=== PATIENT | male | born 1930 | race Caucasian/White ===

== ENCOUNTER 2017-06-10 18:06 | Inpatient (IN) | payer MEDICARE, OTHER ==
[~2017-06-10] VITALS: Ht 162.6 cm; Wt 71.4 kg
--- NOTE | 2017-06-11 00:30 | NUR ---
NEW ADMIT TO DOCTOR RIVERA FROM [facility] IN [place]. PATIENT ARRIVED TO UNIT VIA AMBULANCE ON A STRETCHER. PATIENT BEING ADMITTED FOR ALTERED MENTAL STATUS. HE IS DELUSIONAL AT TIMES. TAKING CLOTHES OFF. INAPPROPRIATE SEXUAL STATEMENTS. AGGITATION. PATIENT HAS A HISTORY OF DEMENTIA. JUST FINISHED ANTIBIOTICS RELATED TO PNEUMONIA. BED REST. REGULAR DIET PUREE WITH NECTAR THICK LIQUIDS. UPON ARRIVAL TO UNIT, PATIENT WAS CALM AND COOPERATIVE BUT CONFUSED. TELEPHONE CONSENT RECEIVED FROM PATIENTS (ADY). PATIENTS VERIFIED FULL CODE STATUS. PATIENTS FAMILY STATES THEY WOULD [facility]AC[facility]. PATIENT REMAINS CALM AND COOPERATIVE. RESTING IN BED WITH EYES CLOSED AT THIS TIME. PITO ALARM ON. CONTINUE TO MONITOR.
[2017-06-11 06:18] VITALS: BP 139/65
[2017-06-11 06:34] LABS: BASOPHILS 0.1 % (0-2); EOSINOPHILS 0.3 % (0-7); HEMATOCRIT 27.2 % (42.0-54.0); HEMOGLOBIN 9.1 g/dL (13.5-17.5); IMMATURE GRANULOCYTES 0.3 % (0-5); LYMPHOCYTES 15.6 % (15-50); MCH 30.7 pg (26.0-34.0); MCHC 33.5 g/dL (31.0-37.0); MCV 91.9 fL (80.0-100.0); MEAN PLATELET VOLUME 10.5 fL (7.4-10.4); MONOCYTES 10.5 % (2-11); NEUTROPHILS 73.2 % (40-80); PLATELET COUNT 266 10x3/uL (130-400); RBC 2.96 10x6/uL (4.20-6.10); RDW 16.3 % (11.5-14.5); WBC 7.3 10x3/uL (4.8-10.8)
[2017-06-11] MEDS ORDERED: FUROSEMIDE20 MG PO (07:05)
[2017-06-11] MEDS ORDERED: KLOR-CON 1010 MEQ PO (07:06)
[2017-06-11] MEDS ORDERED: PROVENTIL/2.5 MG/3 M INH (07:08)
[2017-06-11] MEDS ORDERED: CLEOCIN HCL300 MG PO (07:08)
[2017-06-11 07:12] LABS: ALBUMIN 2.1 g/dL (3.4-5.0); ALKALINE PHOSPHATASE 79 U/L (46-116); ALT (SGPT) 10 U/L (10-68); BILIRUBIN - TOTAL 0.59 mg/dL (0.2-1.3); CALC OSMOLALITY 273 mosm/kg (275-300); CALCIUM 7.9 mg/dL (8.5-10.1); CARBON DIOXIDE 27.3 mmol/L (21.0-32.0); CHLORIDE - SERUM 103 mmol/L (98-107); CHOL - HDL RATIO 3.6 ratio (2.3-4.9); CHOLESTEROL, TOTAL 128 mg/dL (0-200); CREATININE - SERUM 0.7 mg/dL (0.6-1.3); GLUCOSE 92 mg/dL (74-106); HDL CHOLESTEROL 36 mg/dL (32-96); LDL CHOLESTEROL 76 mg/dL (0-100); LDL-HDL RATIO 2.1 ratio (1.5-3.5); POTASSIUM - SERUM 3.8 mmol/L (3.5-5.1); PROTEIN - SERUM 5.4 g/dL (6.4-8.2); SODIUM 138 mmol/L (136-145); THYROID STIMULATING HORMONE 1.13 uIU/mL (0.36-3.74); TRIGLYCERIDE 84 mg/dL (30-200); UREA NITROGEN 6 mg/dL (7-18); eGFR NON AFRICAN AMERICAN > 90 mL/min (90-120)
[2017-06-11 08:59] VITALS: BP 117/67
--- NOTE | 2017-06-11 12:45 | NUR ---
PT FINISHED WITH LUNCH SITTING AT TABLE VERY ANXIOUS SHAKING TABLE TRYING TO GET UP PT REDIRECTED SEVERAL TIMES WITHOUT SUCESS PT MEDICATED WITH ATIVAN PER DR ORDER WILL MONITER
[2017-06-11 19:36] VITALS: BP 146/68
--- NOTE | 2017-06-12 02:06 | NUR ---
RECEIVED IN HALLWAY. SITTING IN RECLINER OUTSIDE OF NURSES STATION. VERY CONFUSED. CALM AND COOPERATIVE WITH CARE AND ASSESSMENT. NO SIGNS OF AGGITATION. REDIRECT AND REORIENT NEEDED. ENCOURAGE TO EXPRESS NEEDS. RESTING IN BED WITH EYES CLOSED AT THIS TIME. CONTINUE PLAN OF CARE.
[2017-06-12 07:31] LABS: RAPID PLASMA REAGIN Non Reactive (Non Reactive)
--- NOTE | 2017-06-12 07:50 | NUR ---
PATIENT IS COUGHING AND DID GET HIM UP, HE DOES HAVE SEVERE REDNESS AND EXCORIATION TO HIS GROIN, BUTTOCKS, AND SCROTUM, WILL GET ORDER FOR MEDS TO ALLEVIATE THE RASH. LOOKS LIKE YEAST.
[2017-06-12 08:21] LABS: FOLATE (FOLIC ACID) - SERUM 4.2 ng/mL (>3.0)
--- NOTE | 2017-06-12 08:25 | NUR ---
B) PATIENT IS AWAKE AND ALERT TODAY. HE IS [place], HE HAS EDEMA TO BILATERAL ARMS AND LEGS, HIS LUNGS HAVE WHEEZES ON EXPORATION. HE IS COUGHING, BUT IT IS NONPRODUCTIVE. I) PROVIDE PRESCRIBED MEDS. R) PATIENT IS COMPLIANT WITH MEDS. P) CONTINUE POC.
[2017-06-12 09:52] VITALS: BP 93/54
--- NOTE | 2017-06-12 10:15 | PSY ---
PATIENT NAME:KAREN SINGH MEDICAL RECORD: [id number] : [birth year] LOCATION:L[facility]5 ADMISSION DATE: 06/11/17 ACCOUNT: [id number] PSYCHIATRIC EVALUATION DATE OF EVALUATION: 06/11/17 IDENTIFYING DATA: This is the first Residential admission for this 86-year-old white male. HISTORY OF PRESENT ILLNESS: This patient was accepted on transfer from [facility] in [place]. He has a reported past history of dementia. The patient has just completed treatment for pneumonia. He has shown marked worsening in his mental status with extreme confusion. He has also been exhibiting inappropriate sexual behavior, disrobing and making inappropriate comments to others. He is reported to be exhibiting delusional ideation as well. Because of severe deterioration in mental status and combativeness, the patient is admitted. The patient does have chronic pedal edema as well. PAST MEDICAL HISTORY: Significant for recent pneumonia and possible hypertension. MEDICATIONS: Medications at the time of admission included Lasix, potassium, albuterol inhaler, and clindamycin. ALLERGIES: None listed. FAMILY HISTORY: Noncontributory. SOCIAL HISTORY: The patient is reportedly originally from [place]. It is not known how long he has lived in [facility], but he is . No details are available currently regarding drinking or smoking status. No known legal difficulties. MENTAL STATUS: On exam, this is an elderly male, who is quite agitated and restless. He has been refusing food and medication and is somewhat difficult to redirect. Mood is at times anxious, at other times irritable. Affect is very brittle. Speech tends to be nonfocused. The patient can occasionally respond appropriately to examiner's questions, but then begins talking in a tangential way about other matters. Content of thought is reportedly positive for delusional ideation. The patient evidently has been exhibiting some paranoid ideation. On sensorium testing, the patient is oriented only to person. He does not recognize that he has recently been in [place]. He does not know where he is now nor does he know the date or the time. Remote recall appears to be significantly impaired. He had great difficulty describing where he was born and raised. Intermediate and short-term recall are all very severely impaired. Concentration is quite poor. Insight is absent. Judgment is very poor. 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 AXIS II: No diagnosis. AXIS III: Recent history of pneumonia, possible restrictive lung disease, pedal edema. AXIS IV: Severe. AXIS V: 36. PLAN: 1. The patient is admitted for further observation from a psychiatric standpoint and further medical workup. 2. Medication adjustment as indicated. 3. Diet and activities as tolerated. 4. Daily supportive therapy. 5. We will work with family regarding placement. TRANSINT:[id number] Voice Confirmation ID: [id number] DOCUMENT ID: [id number] RAMÓN RIVERA III, MD at 1015 CC: [id number] DICTATION DATE: 06/11/17 1104 COMPUTER EDUCATION TEACHER: 06/11/17 1131 ADM IN [place] [id number] [place] [address]
[2017-06-12 19:44] VITALS: BP 119/70
--- NOTE | 2017-06-13 02:05 | NUR ---
B) patient is alert and oriented to self, no aggression or behaviors noted, I) Administered scheduled medications, monitored for falls and safety, R) Medication compliant, resting quietly in bed, P) Continue plan of care.
--- NOTE | 2017-06-13 07:30 | NUR ---
B) PATIENT IS IN BED AND DID HAVE LOOSE BM, STAFF CLEANED HIM UP. PATIENT HAS SEVERE YEAST TO BUTTOCKS, SCROTUM, AND GROINAL AREA, AFTER CLEANING HIM UP IT IS NOTED THAT HE HAS THREE AREAS ON HIS BUTTOCKS THAT ARE ABRASIONS AND WEEPING. DID APPLY MEPILEX. EACH SORE AREA IS ABOUT 2X2CM, THE REMAINDER OF HIS BUTTOCKS, SCROTUM AND GROIN DID APPLY CALMOSEPTINE AND NYSTATIN. LEAVING PATIENT IN THE BED SO HE CAN BE ROLLED FROM SIDE TO SIDE AND KEPT OFF OF HIS BUTTOCKS TODAY. I) PROVIDE PRESCRIBED MEDS. R) PATIENT IS SLEEPY THIS AM, NO AGGRESSION THIS AM. P) CONTINUE POC.
[2017-06-13 09:52] VITALS: BP 130/70
--- NOTE | 2017-06-13 15:44 | NUR ---
PATIENT IS WAKING UP, HE NEEDS TO BE IN THE DAY ROOM WHERE HE CAN BE MONITORED 1:1 BECAUSE HE IS TRYING TO GET OUT OF THE BED AND WHEN STAFF TRY TO EXPLAIN TO HIM THAT HE IS IN THE HOSPITAL AND THAT HE IS SICK, PATIENT IS NOW CURSING SAYING "I AM NOT "F"ING SICK" PATIENT IS BEING TURNED Q 2 HOURS, WATER PROVIDED AND BED IS BEING CHANGED IT NEEDS IT.
[2017-06-13 19:37] VITALS: BP 120/64
--- NOTE | 2017-06-13 22:51 | NUR ---
B) patient alert and oriented to self, very confused and disoriented, dificult to redirect at times, I) Administered scheduled medications crushed, redirected as needed, R) Medication compliant, resting quietly now, P) Continue plan of care.
[2017-06-14 06:29] VITALS: Ht 162.6 cm; Wt 71.4 kg
[2017-06-14 09:44] VITALS: BP 148/78
--- NOTE | 2017-06-14 12:39 | NUR ---
B) PATIENT IS MORE AWAKE TODAY, HE IS CONFUSED, STILL COUGHING AND STILL HAS WHEEZES. PATIENT DID WALK WITH P.T. TODAY. HE IS CALM, BUT HE DOES CURSE AT TIMES. I) PROVIDE PRESCRIBED MEDS. R) PATIENT IS COMPLIANT WITH MEDS. P) CONTINUE POC.
[2017-06-14 16:21] LABS: APPEARANCE SLT CLOUDY (CLEAR); BILIRUBIN NEGATIVE (NEGATIVE); COLOR DK YELLOW (YELLOW); GLUCOSE NEGATIVE (NEGATIVE); KETONE MODERATE mg/dL (NEGATIVE); NITRITE NEGATIVE (NEGATIVE); PROTEIN TRACE mg/dL (NEGATIVE); UROBILINOGEN NORMAL (NORMAL)
[2017-06-14 16:23] LABS: BACTERIA FEW /hpf (NONE SEEN); EPITHELIAL CELLS 0-5 /hpf (0-5)
[2017-06-14 16:24] LABS: MUCUS <1+ /lpf (NONE SEEN)
[2017-06-14 19:30] VITALS: BP 138/89
--- NOTE | 2017-06-15 04:06 | NUR ---
B) patient is alert and oriented to self only, restless at times, cooperative with staff, I) Administered scheduled medication, monitored for safety, R) Medication compliant P) Continue plan of care.
--- NOTE | 2017-06-15 06:01 | PN ---
PATIENT:KAREN SINGH MEDICAL RECORD: [id number] LOCATION:CHARAN Duval ADMISSION DATE: 06/11/17 PROGRESS NOTE DATE OF SERVICE: 06/14/2017 SUBJECTIVE: No new complaint noted. OBJECTIVE: The patient is not combative, but has outbursts of yelling with profanity. On exam, mood is anxious. Affect is restless. Speech is as noted above. Content of thought focuses only on somatic concerns. Sensorium shows no change. ASSESSMENT: No change in diagnosis. PLAN: 1. Continue current workup. 2. Continue current medications and supportive therapy. TRANSINT:[id number] Voice Confirmation ID: [id number] DOCUMENT ID: [id number] RAMÓN RIVERA III, MD at 0601 CC: [id number] DICTATION DATE: 06/14/17 1116 LOAN DOCUMENTS CLOSER: 06/14/17 1316 ADM IN [place] [id number] [place] [id number]
--- NOTE | 2017-06-15 06:01 | PN ---
PATIENT:KAREN SINGH MEDICAL RECORD: [id number] LOCATION:CHARAN Duval ADMISSION DATE: 06/11/17 PROGRESS NOTE DATE OF SERVICE: 06/12/2017 SUBJECTIVE: No coherent complaint. OBJECTIVE: The patient remains extremely confused. He did take his medications willingly today. He has been eating reasonably well. PHYSICAL EXAMINATION: On exam, mood is slightly anxious. Affect is shallow. Speech is rambling and nonsensical. Content of thought is negative for overt psychosis. Sensorium shows no change. ASSESSMENT: No change in diagnosis. PLAN: 1. Add Aricept 5 mg at bedtime. 2. Continue other current medications. 3. Continue supportive therapy. TRANSINT:[id number] Voice Confirmation ID: [id number] DOCUMENT ID: [id number] RAMÓN RIVERA III, MD at 0601 CC: [id number] DICTATION DATE: 06/12/17 1100 AUTOMATIC CORN GRINDER OPERATOR: 06/12/17 1330 ADM IN [place] [id number] [place] [address]
--- NOTE | 2017-06-15 06:01 | PN ---
PATIENT:KAREN SINGH MEDICAL RECORD: [id number] LOCATION:CHARAN Duval ADMISSION DATE: 06/11/17 PROGRESS NOTE DATE OF SERVICE: 06/13/2017 SUBJECTIVE: No new complaint. OBJECTIVE: The patient continues to feel ill. He has residual pneumonia and has had some episodic coughing and dyspnea. He also has some skin breakdown on the buttocks, and for this reason nursing staff has allowed him to stay in bed today. On exam, mood is rather anxious. Affect is shallow and brittle. Speech is tangential. Content of thought just focuses primarily on somatic problems. Sensorium shows no change. ASSESSMENT: No change in diagnosis. PLAN: 1. Continue all current medications. 2. Continue supportive therapy. TRANSINT:[id number] Voice Confirmation ID: [id number] DOCUMENT ID: [id number] RMAÓN RIVERA III, MD at 0601 CC: [id number] DICTATION DATE: 06/13/17 1109 TERRAZZO HELPER: 06/13/17 1200 ADM IN [place] [address] [place] [address]
[2017-06-15 07:00] VITALS: BP 124/54
--- NOTE | 2017-06-15 11:47 | NUR ---
HALDOL 2MG IM TO RT HIP DUE TO CUSSING LOUDLY AT PEER AND PUSHING TABLE HARD.UNABLE TO REDIRECT.CONFUSED AND DISORIENTED.COMPLIANT WITH MEDS,CRUSHED AND GIVEN IN APPLESAUCE.HAS RED RAISED RASH ON BACK,ABD AND LEGS.SCRATCHING OBSERVED.WILL NOTIFY OF RASH.WILL CONTINUE WITH PLAN OF CARE,MONITOR FOR CHANGES AND SAFETY.
--- NOTE | 2017-06-15 13:31 | NUR ---
TELEPHONE ORDERS RECEIVED FROM TO NARA ORTIZ ,GIVE BENADRYL 25MG PO X1 AND APPLY NYSTATIN CREAM TO RASH ON BODY AND LEGS BID.
[2017-06-15 19:30] VITALS: BP 126/87
--- NOTE | 2017-06-16 02:22 | NUR ---
RECEIVED IN HALLWAY OUTSIDE OF NURSES STATION. RESTING IN RECLINER WITH EYES OPEN. CALM AND COOPERATIVE WITH CARE AND ASSESSMENT. NO SIGNS OF AGGRESSION. ENCOURAGE TO EXPRESS NEEDS. REDIRECT AND REORIENT NEEDED. RESTING IN BED WITH EYES CLOSED AT THIS TIME. CONTINUE PLAN OF CARE.
[2017-06-16 07:00] VITALS: BP 115/60
--- NOTE | 2017-06-16 08:15 | NUR ---
INCONTINENT OF LARGE THICK BROWN STOOL. ORIENTED TO SELF ONLY. CALM AND COOPERATIVE WITH CARE AND ASSESSMENT. ADMINISTERED MEDICATIONS CRUSHED IN APPLESAUCE. REDIRECT AND REORIENT NEEDED. MONITOR FOR SAFETY AND CHANGES. CONTINUE PLAN OF CARE.
[2017-06-16 19:30] VITALS: BP 122/82
--- NOTE | 2017-06-16 21:11 | NUR ---
RECEIVED IN HALLWAY. SITTING IN A RECLINING CHAIR OUTSIDE OF NURSES STATION. ATTEMPTS TO STAND WITHOUT ASSIST AT TIMES. CALM AND COOPERATIVE WITH CARE AND ASSESSMENTS. NO SIGNS OF AGGRESSION. REDIRECT AND REORIENT NEEDED. RESTING IN BED EYES CLOSED AT THIS TIME. CONTINUE PLAN OF CARE
[2017-06-17 07:00] VITALS: BP 96/61
--- NOTE | 2017-06-17 10:00 | NUR ---
CONFUSED AND DISORIENTED, BUT CALM AND COOPERATIVE WITH CARE AND ASSESSMENT. ASSESSMENT COMPLETED PER FLOW. COMPLIANT WITH TAKING MEDICATIONS. REDIRECT AND REORIENT NEEDED. MONITOR FOR SAFETY. CONTINUE WITH PLAN OF CARE.
[2017-06-17 19:34] VITALS: BP 151/64
--- NOTE | 2017-06-17 20:00 | NUR ---
RECEIVED IN HALLWAY. SITTING IN RECLINING CHAIR OUTSIDE OF NURSES STATION. VERY CONFUSED. ATTEMPTS TO STAND WITHOUT ASSIST. INCREASING ANXIETY. YELLING OUT WITH REDIRECTION. PRN ATIVAN 0.5 MG PO GIVEN FOR ANXIETY. REDOIRECT AND REORIENT NEEDED. CONTINUE TO SIT IN RECLINER. CONTINUE PLAN OF CARE
--- NOTE | 2017-06-17 22:00 | NUR ---
VERY CONFUSED. INCREASING ANXIETY. BECOMING COMBATIVE WITH REDIRECTION. YELLING AND CURSING STAFF. PRN ATIVAN 1 MG IM FOR ANXIETY AND PRN HALDOL 2 MG IM FOR INCREASING ANXIETY. CONTINUE TO REDIRECT AND REORIENT NEEDED.
[2017-06-18 07:00] VITALS: BP 114/62
--- NOTE | 2017-06-18 07:56 | NUR ---
LATE ENTRY FROM 06/14 SW ASSESSMENT WAS COMPLETED LATE DUE TO PT'S HAVING THE FLU AND NOT BEING ABLE TO DISCUSS HISTORY DURING THE FIRST DAYS OF ADMISSION.
--- NOTE | 2017-06-18 09:20 | NUR ---
ORIENTED TO SELF ONLY. CALMER AND MORE COOPERATIVE TODAY. COMPLIANT WITH TAKING MEDICATIONS. HE IS FEEDING HIMSELF TODAY AND TRYING TO GET UP LESS. MONITOR FOR SAFETY AND CHANGES. CONTINUE PLAN OF CARE.
--- NOTE | 2017-06-18 10:49 | PN ---
PATIENT:KAREN SINGH MEDICAL RECORD: [id number] LOCATION:CHARAN [facility]112 ADMISSION DATE: 06/11/17 PROGRESS NOTE DATE OF SERVICE: 06/17/2017 SUBJECTIVE: No new complaint. OBJECTIVE: The patient continues to be extremely confused. He did not recognize family members yesterday. On exam, mood is euthymic. Affect is very constricted. Speech is minimal. Content of thought is negative for overt psychosis. Sensorium is unchanged. ASSESSMENT: No change in diagnosis. PLAN: 1. Continue current treatment plan. 2. We will assist family and placement. TRANSINT:[id number] Voice Confirmation ID: [id number] DOCUMENT ID: [id number] RAMÓN RIVERA III, MD at 1049 CC: [id number] DICTATION DATE: 06/17/17 1107 DIRECTOR OF MEDICAL EDUCATION: 06/17/17 1220 ADM IN [place] [id number] [place] [id number]
--- NOTE | 2017-06-18 19:56 | NUR ---
RECEIVED IN BEDROOM. ASSISTING MHT TO CLEAN UP PATIENT. VERY CONFUSED. CALM AND COOPERATIVE WITH CARE AND ASSESSMENTS. NO SIGNS OF AGGRESSION. REDIRECT AND REORIENT NEEDED. RESTING IN BED EYES CLOSED AT THIS TIME. CONTINUE PLAN OF CARE
[2017-06-18 20:10] VITALS: BP 152/73
--- NOTE | 2017-06-19 09:30 | NUR ---
Alert, calm, cooperative, med compliant, takes meds crushed in pudding, requires frequent redirection to remain seated to avoid falls, pt very unsteady with ambulation, quite confused, denies pain, no s/s distress and no s/s adverse reaction to medications.
[2017-06-19 09:36] VITALS: BP 143/76
--- NOTE | 2017-06-19 10:24 | NUR ---
Nutrition Follow Up: Pt is eating 41% meal avg on a regular pureed diet with nectar thick liquids. Noted pt with stage II to buttocks. +BM 06/18/17. Labs reviewed. Meds noted including Lasix. Rec continue regular diet with AUTOMATIC DRILLER AND REAMER recs for consistencies. Rec consider an appetite stimulant. RD following.
--- NOTE | 2017-06-19 10:25 | PN ---
PATIENT:KAREN SINGH MEDICAL RECORD: [id number] LOCATION:[facility]ette[facility] MesaJosé Luis ADMISSION DATE: 06/11/17 PROGRESS NOTE DATE OF SERVICE: 06/18/2017 SUBJECTIVE: No new complaint. OBJECTIVE: The patient remains under fairly stable. He is taking medications as prescribed and we are awaiting placement at [facility]. On exam, mood is euthymic. Affect very constricted. Speech is minimal. Content of thought focuses only on somatic concerns. Sensorium is unchanged. ASSESSMENT: No change in diagnosis. PLAN: 1. Maintain current medication. 2. Continue supportive therapy. TRANSINT:[id number] Voice Confirmation ID: [id number] DOCUMENT ID: [id number] RAMÓN RIVERA III, MD at 1025 CC: [id number] DICTATION DATE: 06/18/17 1135 ADJUNCT HISTORY INSTRUCTOR: 06/18/17 1206 ADM IN [place] [id number] [place] [id number]
--- NOTE | 2017-06-19 18:30 | NUR ---
Alert, frequently stands from chair unassisted requiring frequent caution and redirection not to fall. Chair alarm in place.
[2017-06-19 19:19] VITALS: BP 123/42; BP 135/42
--- NOTE | 2017-06-19 22:44 | NUR ---
RECEIVED IN HALLWAY OUTSIDE OF NURSES STATION. RESTING IN RECLINER WITH EYES OPEN. CALM AND COOPERATIVE WITH CARE AND ASSESSMENT. NO SIGNS OF AGGRESSION. VERY CONFUSED. ENCOURAGE TO EXPRESS NEEDS. REDIRECT AND REORIENT NEEDED. RESTING IN BED WITH EYES CLOSED AT THIS TIME. CONTINUE PLAN OF CARE.
[2017-06-20 08:11] VITALS: BP 117/55
--- NOTE | 2017-06-20 09:37 | NUR ---
B) PATIENT IS MORE ALERT TODAY, HE IS HAVING ITCHY, DRY SKIN, LOTION APPLIED, PATIENT'S BUTTOCKS, GROIN, AND SCROTUM ARE RED, BUT IT IS LESS RED TODAY. PATIENT IS CALM AND COOPERATIVE. PATIENT STANDS AND WALKS WITH ASSIST. PATIENT IS CONFUSED AND HE KEEPS SAYING HE NEEDS TO LEAVE. I) PROVIDE PRESCRIBED MEDS. R) PATIENT IS COMPLIANT WITH MEDS AND UNIT MILIEU. P) CONTINUE POC.
--- NOTE | 2017-06-20 10:29 | PN ---
PATIENT:KAREN SINGH MEDICAL RECORD: [id number] LOCATION:CHARAN Duval ADMISSION DATE: 06/11/17 PROGRESS NOTE DATE OF SERVICE: 06/19/2017 SUBJECTIVE: The patient does not offer a new complaint. OBJECTIVE: The patient is more alert. He orients well to the examiner today. He even smiles appropriately. He is taking medications as prescribed. We are waiting on a disposition regarding skilled nursing placement. On exam, mood is euthymic. Affect is bland. Speech is terse. Content of thought is negative for overt psychosis. Sensorium is unchanged. ASSESSMENT: No change in diagnosis. PLAN: 1. Maintain current medication. 2. Continue supportive therapy. TRANSINT:[id number] Voice Confirmation ID: [id number] DOCUMENT ID: [id number] RAMÓN RIVERA III, MD at 1029 CC: [id number] DICTATION DATE: 06/19/17 1044 CATTLE FEEDER: 06/19/17 1309 ADM IN [place] [id number] [place] [address]
[2017-06-20 19:30] VITALS: BP 118/82
--- NOTE | 2017-06-20 22:15 | NUR ---
RECEIVED IN PATIENT ROOM. RESTING IN BED WITH EYES OPEN. CALM AND COOPERATIVE WITH CARE AND ASSESSMENT. NO SIGNS OF AGGRESSION. VERY CONFUSED. CONTINUOUSLY ATTEMPTING TO STAND WITHOUT ASSIST. PITO ALARM SOUNDING. INCREASING ANXIETY. BECOMING RESISTIVE TO REDIRECTION. REDIRECT AND REORIENT NEEDED. PRN ATIVAN 0.5 MG PO GIVEN FOR INCREASING ANXIETY. RESTING IN BED WTIH EYES CLOSED AT THIS TIME. CONTINUE PLAN OF CARE.
--- NOTE | 2017-06-21 09:36 | NUR ---
B) PATIENT DID HAVE A LARGE BM THIS AM ON THE FLOOR. PATIENT IS CONFUSED AND HE HAS POOR SHORT TERM MEMORY RECALL. HE CAN NOT TELL US THE NAME OF HIS COUNTRY OF ORIGIN OR THE LANGUAGE. HE COULD NOT TELL US THE NAME OF HIS [place]WIN BROTHER. DR. RODRIGUES NOTIFIED SO THAT SHE CAN TEST HIM TODAY. I) PROVIDE PRESCRIBED MEDS AND REDIRECT NEEDED.R) PATIENT DOES HAVE DRY, PEELING SKIN, DID LET DR. COE KNOW AND HE WILL PRESCRIBE A LOTION. PATIENT IS COMPLIANT WITH MEDS. P) CONTINUE POC.
[2017-06-21 11:12] VITALS: BP 136/55
[2017-06-21 19:54] VITALS: BP 122/77
--- NOTE | 2017-06-21 23:48 | NUR ---
B) Patient is alert and social with staff, difficult to understand at times, restless, itching from dry flaking skin rash, I) Administered scheduled medications, monitored for safety, redirected as needed, R) Medication compliant, did not like having lotion on his arms, noted less discomfort from rash after application of lotion to his back, P) Continue plan of care.
--- NOTE | 2017-06-22 10:34 | PN ---
PATIENT:KAREN SINGH MEDICAL RECORD: [id number] LOCATION:PON[facility] MesaJosé Luis ADMISSION DATE: 06/11/17 PROGRESS NOTE DATE OF SERVICE: 06/21/2017 SUBJECTIVE: The patient's case was discussed with staff, he has no new complaint. OBJECTIVE: The patient is severely impaired cognitively, but in good behavioral control. He has no active thoughts of harming himself or others. ASSESSMENT: No change in diagnoses. PLAN: Brief supportive and educational interventions were made. Mcfp prognosis is guarded. TRANSINT:[id number] Voice Confirmation ID: [id number] DOCUMENT ID: [id number] SUZETTE MARSH MD at 1034 CC: [id number] DICTATION DATE: 06/21/17 1232 OPERATIONAL COMMUNICATION CHIEF: 06/21/17 1252 ADM IN [place] [id number] [place] [address]
--- NOTE | 2017-06-22 11:20 | NUR ---
B) PATIETN IS AWAKE AND ALERT, HE IS CONFUSED, HE IS NOT ABLE TO STATE HIS NAME OR HIS 'S NAME. PATIENT CAN AMBULATE WITH ASSISTANCE USING A WALKER. I) PROVIDE PRESCRIBED MEDS. R) PATIENT IS COMPLIANT WITH MEDS CRUSHED IN APPLESAUCE. PATIENT HAS NOT SHOWN ANY SIGNS OF AGGRESSION. HE DOES AT TIMES GET IRRITABLE AND SAYS THE "F" WORD. P) CONTINUE POC.
[2017-06-22 11:52] VITALS: BP 109/58
--- NOTE | 2017-06-22 13:19 | NUR ---
PATIENT'S ADY CALLED AND ASKED ABOUT PATIENT, SHE ALSO SAYS [facility] DID LET HER KNOW THAT THE PATIENT IS EATING BETTER, WALKING WITH A WALKER, BUT THAT HE IS CONFUSED. SHE SAYS SHE REALIZES HE IS CONFUSED AND IT HURTS HER FEELINGS THAT HE DOESN'T KNOW HER, BUT REALIZES IT IS NOT HIS FAULT. PATIENT'S SPOUSE WAS PLEASED TO HEAR THAT HER IS PHYSICALLY DOING BETTER.
--- NOTE | 2017-06-22 19:28 | PN ---
PATIENT:KAREN SINGH MEDICAL RECORD: [id number] LOCATION:PONC[facility]e MesaJosé Luis ADMISSION DATE: 06/11/17 PROGRESS NOTE DATE OF SERVICE: 06/22/2017 SUBJECTIVE: The patient's case was discussed with staff. He has no new complaint. OBJECTIVE: The patient is severely impaired cognitively, but has not been actively aggressive today. He has poor insight about his condition. ASSESSMENT: No change in diagnoses. PLAN: Supportive and educational interventions were made. Snf prognosis is guarded. TRANSINT:[id number] Voice Confirmation ID: [id number] DOCUMENT ID: [id number] SUZETTE MARSH MD at 1928 CC: [id number] DICTATION DATE: 06/22/17 1043 SPEEDER WORKER: 06/22/17 1141 ADM IN [place] [id number] [place] [address]
[2017-06-22 20:27] VITALS: BP 105/52
--- NOTE | 2017-06-23 05:35 | NUR ---
B) Patient is alert and oriented to self, very confused, social with staff, difficulty falling to sleep I) Administered scheduled medications, monitored for safety, R) MMedication compliant, resting quietly in bed now, P) Contine plan of care.
[2017-06-23 07:00] VITALS: BP 110/51
--- NOTE | 2017-06-23 10:21 | NUR ---
ADMINISTERED MORNING MEDICATIONS CRUSHED IN APPLESAUCE WITHOUT DIFFICULTY. PLEASANT AFFECT. NO S/SX OF ACUTE DISTRESS NOTED. DENIES ANY NEEDS OR PAIN. WILL CONTINUE TO MONITOR
--- NOTE | 2017-06-23 17:07 | NUR ---
ORIENTED TO SELF ONLY.AMBULATES WITH WALKER.IS COMPLIANT WITH STAFF AND MEDS.WILL CONTINUE WITH PLAN OF CARE,MONITOR FOR CHANGES AND SAFETY.
--- NOTE | 2017-06-23 20:00 | NUR ---
RECEIVED IN BEDROOM. EXITING BED WITHOUT ASSIST. PITO ALARM SOUNDING. CONFUSED. CALM AND COOPERATIVE WITH CARE AND ASSESSMENTS. ASSIST TO CHAIR IN [place]. REDIRECT AND REORIENT NEEDED. RESTING IN RECLINING CHAIR IN HALLWAY OUTSIDE OF NURSES STATION AT THIS TIME. CONTINUE PLAN OF CARE
[2017-06-23 20:07] VITALS: BP 160/76
[2017-06-24 07:00] VITALS: BP 116/60
--- NOTE | 2017-06-24 09:21 | NUR ---
PT TOOK ALL MEDS NO PROBLEMS LOTION AND CREAM APPLIED TO BACK AND OINTMENT AND POWDER APPLIED TO GROIN AREA ORDERED SKIN IS SCALLY AND SLIGHTLY PINK WILL MARILY
--- NOTE | 2017-06-24 14:12 | PN ---
PATIENT:KAREN SINGH MEDICAL RECORD: [id number] LOCATION:CHARAN CrockerJoelJosé Luis ADMISSION DATE: 06/11/17 PROGRESS NOTE DATE OF SERVICE: 06/23/2017 SUBJECTIVE: The patient's case was discussed with staff. He has no new complaint. OBJECTIVE: The patient is severely impaired cognitively, but has been in good behavioral control. He is not sleeping very well, but he does catnaps throughout the day. He has limited insight about his condition. ASSESSMENT: No change in diagnoses. PLAN: The patient's current therapies have been reviewed. He will be maintained on current medicines. His long-term prognosis is guarded. TRANSINT:[id number] Voice Confirmation ID: [id number] DOCUMENT ID: [id number] SUZETTE MARSH MD at 1412 CC: [id number] DICTATION DATE: 06/23/17 1058 SOUND EFFECTS SUPERVISOR: 06/23/17 1337 ADM IN [place] [id number] [place] [address]
[2017-06-24 19:30] VITALS: BP 122/58
--- NOTE | 2017-06-25 01:47 | NUR ---
RECEIVED IN BEDROOM. RESTING IN BED WITH EYES CLOSED. SOCIALIZING WITH PEERS THIS EVENING. SEXUALLY INAPPROPRIATE WITH MHT. CALM AND COOPERATIVE WITH CARE AND ASSESSMENTS. NO SIGNS OFAGGRESSION. REDIRECT AND REORIENT NEEDED. RESTING IN BED WITH EYES CLOSED. CONTINUE PLAN OF CARE
[2017-06-25 07:00] VITALS: BP 85/57
--- NOTE | 2017-06-25 12:38 | NUR ---
Nutrition Follow Up: Pt is eating 93% meal avg on a regular pureed diet with nectar thick liquids. +BM 06/25/17. Labs reviewed. Meds noted including Lasix, Megace. Rec continue regular diet with CAR CONDITIONER recs for consistencies. Rec continue appetite stimulant. RD following.
--- NOTE | 2017-06-25 12:58 | NUR ---
B) PATIEMT IS AWAKE AND ALERT, HE IS SINGING, BUT HE IS CONFUSED. HE CAN AMBULATE, BUT HE IS UNSTEADY. I) PROVIDE PRESCRIBED MEDS. R) PATIENT IS COMPLIANT WITH MEDS. P) CONTINUE POC.
--- NOTE | 2017-06-25 23:55 | NUR ---
RECEIVED IN BEDROOM. RESTING IN BED WITH EYES CLOSED. RESPONDS TO TOUCH. CONFUSED. CALM AND COOPERATIVE WITH CARE AND ASSESSMENTS. NO SIGNS OF AGGRESSION. REDIRECT AND REORIENT NEEDED. RESTING EYES CLOSED. CONTINUE PLAN OF CARE
--- NOTE | 2017-06-26 08:00 | PN ---
PATIENT:KAREN SINGH MEDICAL RECORD: [id number] LOCATION:CHARAN Mesa112 ADMISSION DATE: 06/11/17 PROGRESS NOTE DATE OF SERVICE: 06/20/2017 SUBJECTIVE: No new complaint. OBJECTIVE: The patient continues to improve. He is walking better. Physical therapy has signed off. On exam, mood is pleasant and euthymic. Affect is shallow. Speech is rather terse. Content of thought is negative for overt psychosis. Sensorium shows no change. ASSESSMENT: No change in diagnoses. PLAN: 1. Continue all current medications. 2. Continue supportive therapy. TRANSINT:[id number] Voice Confirmation ID: [id number] DOCUMENT ID: [id number] RAMÓN RIVERA III, MD at 0800 CC: [id number] DICTATION DATE: 06/20/17 1052 FLOODPLAIN MANAGER: 06/20/17 1117 ADM IN [facility] [address] [place] [id number]
--- NOTE | 2017-06-26 08:00 | PN ---
PATIENT:KAREN SINGH MEDICAL RECORD: [id number] LOCATION:CHARAN Duval ADMISSION DATE: 06/11/17 PROGRESS NOTE DATE OF SERVICE: 06/24/2017 SUBJECTIVE: No new complaint. OBJECTIVE: The patient is showing some moderate agitation from time to time; however, he remains significantly improved. He does feed himself. He walks with a walker and he is much able to be redirected. PHYSICAL EXAMINATION: On exam, mood is euthymic. Affect bland. Speech is terse. Content of thought focuses only on somatic concerns. Sensorium is unchanged. ASSESSMENT: No change in diagnosis. PLAN: 1. Continue current medications. 2. Continue supportive therapy. TRANSINT:[id number] Voice Confirmation ID: [id number] DOCUMENT ID: [id number] RAMÓN RIVERA III, MD at 0800 CC: [id number] DICTATION DATE: 06/24/17 1106 PROOFREADER: 06/24/17 1117 ADM IN [id number] [place] [address]
--- NOTE | 2017-06-26 08:00 | PN ---
PATIENT:KAREN SINGH MEDICAL RECORD: [id number] LOCATION:CHARAN Duval ADMISSION DATE: 06/11/17 PROGRESS NOTE DATE OF SERVICE: 06/25/2017 SUBJECTIVE: No new complaint. OBJECTIVE: The patient remains quite confused, but is overall considerably improved. He continues to ambulate with a walker. He is feeding himself and much calmer. On exam, mood is pleasant and euthymic. Affect is rather constricted. Speech is terse. Content of thought is negative for overt psychosis. Sensorium is unchanged. ASSESSMENT: No change in diagnosis. PLAN: 1. Continue current medications. 2. Continue supportive therapy. TRANSINT:[id number] Voice Confirmation ID: [id number] DOCUMENT ID: [id number] RAMÓN RIVERA III, MD at 0800 CC: [id number] DICTATION DATE: 06/25/17 1012 EMPLOYMENT RECRUITER: 06/25/17 1046 ADM IN [facility] [address] [place] [address]
[2017-06-26 10:30] VITALS: BP 123/57
--- NOTE | 2017-06-26 10:40 | NUR ---
B) PATIENT IS CONFUSED, HE CAN WALK WITH A WALKER. HE DOES CURSE, HE HAS DIFFICLTY FOLLOWING DIRECTION AND HE CAN NOT SAY COMPLETE SENTENCES, HE HAS NOT SHOWN ANY AGGRESSION, BUT HE DOES CURSE AND USE THE "F" WORD FREQUENTLY. I) PROVIDE PRESCRIBED MEDS. R) PATIENT IS COMPLIANT WITH MEDS CRUSHED IN APPLESAUCE. P) CONTINUE POC.
[2017-06-26 19:30] VITALS: BP 128/88
--- NOTE | 2017-06-26 23:43 | NUR ---
B) Patient is alert and oriented to self, very confused and unaware of surroundings, I) Administered scheduled medications, monitored for safety, R) Medication compliant, resting quietly in bed, P) Continue plan of care.
--- NOTE | 2017-06-27 05:04 | PN ---
PATIENT:KAREN SINGH MEDICAL RECORD: [id number] LOCATION:CHARAN Duval ADMISSION DATE: 06/11/17 PROGRESS NOTE DATE OF SERVICE: 06/26/2017 SUBJECTIVE: No new complaint. OBJECTIVE: The patient continues to do fairly well. He has episodes of singing or yelling out, but is very easily redirected. On exam, mood is pleasant and euthymic. Affect is bland. Speech is terse. Content of thought is negative for overt psychosis. Sensorium unchanged. ASSESSMENT: No change in diagnosis. PLAN: 1. Maintain current medication. 2. Continue supportive therapy. TRANSINT:[id number] Voice Confirmation ID: [id number] DOCUMENT ID: [id number] RAMÓN RIVERA III, MD at 0504 CC: [id number] DICTATION DATE: 06/26/17829 FORGING DIE SINKER: 06/26/17 1314 ADM IN [facility] [address] [place] [address]
--- NOTE | 2017-06-27 07:26 | NUR ---
B) PATIENT IS AWAKE AND HE IS IN A PLEASANT MOOD, HE IS SINGING OUT AND HE IS SMILING, HE IS TALKING, BUT IT IS NONSENSICAL. HE CAN AMBULATE WITH A WALKER. I) PROVIDE PRESCRIBED MEDS, R) PATIENT IS COMPLIANT WITH MEDS AND HE HAS NOT SHOWN AGGRESSION THIS AM. P) CONTINUE POC.
[2017-06-27 09:47] VITALS: BP 123/60
[2017-06-27] MEDS ORDERED: FLORAJEN3 CAPS460 MG PO (11:34)
[2017-06-27] MEDS ORDERED: ARICEPT5 MG PO (11:34)
[2017-06-27] MEDS ORDERED: VITAMIN D5000 UNIT PO (11:34)
[2017-06-27] MEDS ORDERED: VITAMIN B-121000 MCG PO (11:34)
[2017-06-27 12:37] VITALS: BP 123/60
[2017-06-27 19:59] VITALS: BP 123/60
--- NOTE | 2017-06-28 01:54 | NUR ---
B) Patient is alert and oriented to self, very confused, wanders at times, self ambulates short distances, but becomes very tired, I) Administered scheduled medications, monitored for safety, redirected as needed, R) Medication compliant, resting in the hallway for safety P) Continue plan of care.
[2017-06-28 08:30] VITALS: BP 131/068
--- NOTE | 2017-06-28 12:01 | PN ---
PATIENT:KAREN SINGH MEDICAL RECORD: [id number] LOCATION:LizzetteLAURENDuarte Mesa112 ADMISSION DATE: 06/11/17 PROGRESS NOTE DATE OF SERVICE: 06/27/2017 SUBJECTIVE: No new complaint. OBJECTIVE: The patient has continued to do well. No further behavioral problems. Tolerating medications without difficulty. On exam, mood euthymic. Affect bland. Speech tangential. Content of thought is negative for overt psychosis. Sensorium shows no change. ASSESSMENT: No change in diagnosis. PLAN: 1. Continue current treatment plan. 2. Anticipate discharge tomorrow. TRANSINT:[id number] Voice Confirmation ID: [id number] DOCUMENT ID: [id number] RAMÓN RIVERA III, MD at 1201 CC: [id number] DICTATION DATE: 06/27/17 1137 EMPLOYMENT SERVICES DIRECTOR: 06/27/17 1231 ADM IN [place] [address] [place] [address]
--- NOTE | 2017-06-28 21:07 | DS ---
PATIENT:KAREN SINGH :[birth year] MEDICAL RECORD: [id number] DISCHARGE SUMMARY ADMISSION DATE: 06/11/17 DISCHARGE DATE: 06/28/17 DATE OF ADMISSION: 06/11/2017. DATE OF DISCHARGE: 06/28/2017. HISTORY: This was the first Detention admission for this 86-year-old white male. The patient had a previous history of dementia. He had been showing worsening confusion and was making inappropriate sexual comments as well. He was also exhibiting delusional ideation. For further details, please see previously dictated history. COURSE IN THE HOSPITAL: The patient was seen in consultation by Dr. Barahona. Dr. Barahona noted the presence of anemia and mild edema, but no other significant medical problems. He was treated very conservatively from a medical standpoint. Psychiatric medications that were begun include Aricept 5 mg h.s. The patient occasionally required p.r.n. Ativan or Haldol during the hospitalization, but this occurred on only a few occasions. By the time of discharge, the patient had cleared considerably and was no longer aggressive or combative at all. The patient was maintained on Lasix and potassium throughout the hospital stay. He also received Proventil inhaler as needed. He was started on vitamin D. 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 AXIS II: No diagnosis. AXIS III: Recent history of pneumonia -- resolving and restrictive lung disease. AXIS IV: Moderate. AXIS V: 38. PLAN: 1. The patient is discharged on current medication. 2. Diet and activities as tolerated. 3. Follow up through primary care physician at the residential. TRANSINT:[id number] Voice Confirmation ID: [id number] DOCUMENT ID: [id number] RAMÓN RIVERA III, MD at 2107 CC: [id number] DICTATION DATE: 06/28/17 1143 STATION MECHANIC HELPER: 06/28/17 1301 DIS IN 06/28/17 [id number] [place] [address]
== END 2017-06-28 13:10 | DRG 56 ==
LOC: D.PSYCH 18:06
PROVIDERS: ADMIT Psychiatry & Neurology Psychiatry
DX: G30.1 Alzheimer's disease with late onset (principal); J69.0 Pneumonitis due to inhalation of food and vomit; F02.81 Dementia in other diseases classified elsewhere, unspecified severity, with behavioral disturbance; B37.49 Other urogenital candidiasis; B37.89 Other sites of candidiasis; Z74.09 Other reduced mobility; E53.8 Deficiency of other specified B group vitamins; E55.9 Vitamin D deficiency, unspecified; D64.9 Anemia, unspecified; R13.12 Dysphagia, oropharyngeal phase; R63.0 Anorexia

== ENCOUNTER 2017-07-05 14:21 | Inpatient (IN) | payer MEDICARE, OTHER ==
[~2017-07-05] VITALS: Ht 175.3 cm; Wt 66.0 kg
--- NOTE | ~2017-07-05 | PN ---
PATIENT:KAREN SINGH MEDICAL RECORD: [id number] LOCATION:PONCEDuarte MesaJosé Luis ADMISSION DATE: 07/05/17 PROGRESS NOTE DATE OF SERVICE: 07/10/2017 SUBJECTIVE: The patient's case was discussed with staff. He has no new complaint. OBJECTIVE: The patient is severely impaired cognitively. He has been agitated. ASSESSMENT: No change in diagnoses. PLAN: The patient is going to be given a scheduled dose of Xanax. His long-term prognosis is guarded. TRANSINT:[id number] Voice Confirmation ID: [id number] DOCUMENT ID: [id number] SUZETTE MARSH MD at 1322 CC: [id number] DICTATION DATE: 07/10/17 1330 BEHAVIOR SPECIALIST: 07/10/17 1403 ADM IN [place] [place] [address]
--- NOTE | ~2017-07-05 | PN ---
PATIENT:KAREN SINGH MEDICAL RECORD: [id number] LOCATION:PONCEDuarte LizzetteJoelJosé Luis ADMISSION DATE: 07/05/17 PROGRESS NOTE DATE OF SERVICE: 07/22/2017 SUBJECTIVE: The patient's case was discussed with staff. He has no new complaint. OBJECTIVE: The patient is intermittently agitated, but it seems to be primarily associated with personal care. He has not been aggressive in a predatory way. He denies any thoughts of harming himself or others. Apparently, he fell this weekend, but when asked about it, he cannot recall it happening. TRANSINT:[id number] Voice Confirmation ID: [id number] DOCUMENT ID: [id number] SUZETTE MARSH MD at 1029 CC: [id number] DICTATION DATE: 07/22/17 1132 CUBE MACHINE TENDER: 07/22/17 1216 ADM IN [facility] [address] [place] [address]
--- NOTE | ~2017-07-05 | PN ---
PATIENT:KAREN SINGH MEDICAL RECORD: [id number] LOCATION:CHARAN Duval ADMISSION DATE: 07/05/17 PROGRESS NOTE DATE OF SERVICE: 07/09/2017 SUBJECTIVE: The patient's case was discussed with staff. He has no new complaint. OBJECTIVE: The patient is severely impaired cognitively. He has not been aggressive with staff. He has limited insight about his condition. He did require p.r.n. medication yesterday evening because of some sexually inappropriate behavior. ASSESSMENT: No change in diagnoses. PLAN: The patient will be treated with Namenda for the purposes of increasing his memory and hopefully help him organize his thoughts so that he will not be so impulsive. His long-term prognosis is guarded. TRANSINT:[id number] Voice Confirmation ID: [id number] DOCUMENT ID: [id number] SUZETTE MARSH MD at 1317 CC: [id number] DICTATION DATE: 07/09/17 1228 OBIEE ARCHITECT: 07/09/17 1249 ADM IN [id number] [place] [address]
--- NOTE | ~2017-07-05 | PN ---
PATIENT:KAREN SINGH MEDICAL RECORD: [id number] LOCATION:CHARAN Moshe112 ADMISSION DATE: 07/05/17 PROGRESS NOTE DATE OF SERVICE: 07/24/2017 SUBJECTIVE: No new complaint. OBJECTIVE: The patient is stable. He is scheduled for discharge this afternoon. On exam, mood is euthymic. Affect bland. Speech is rather terse. Content of thought is unchanged. Sensorium unchanged. ASSESSMENT: No change in diagnoses. PLAN: 1. Continue current treatment. 2. Anticipate discharge this afternoon. TRANSINT:[id number] Voice Confirmation ID: [id number] DOCUMENT ID: [id number] RAMÓN RIVERA III, MD at 1946 CC: [id number] DICTATION DATE: 07/24/17 1135 FEEDER WORKER POWER UNIT OPERATOR: 07/24/17 1217 DIS IN 07/24/17 [facility] [address] [place] [address]
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
--- NOTE | ~2017-07-05 | PN ---
PATIENT:KAREN SINGH MEDICAL RECORD: [id number] LOCATION:CHARAN Duval ADMISSION DATE: 07/05/17 PROGRESS NOTE DATE OF SERVICE: 07/19/2017 SUBJECTIVE: No new complaint. OBJECTIVE: The patient slept rather poorly last night, only about 3-1/2 hours. He had been exhibiting considerable behavioral disturbance at his previous senior care and so placement at [facility] may be taking place. On exam, mood is somewhat irritable. Affect is shallow and brittle. Speech is tangential. Content of thought exhibits some paranoid ideation. Sensorium shows no change. ASSESSMENT: No change in diagnosis. PLAN: 1. Continue current medications. 2. Continue supportive therapy. TRANSINT:[id number] Voice Confirmation ID: [id number] DOCUMENT ID: [id number] RAMÓN RIVERA III, MD at 0503 CC: [id number] DICTATION DATE: 07/19/17 1139 VACUUM PAN OPERATOR: 07/19/17 1209 ADM IN [place] [address] [place] [id number]
--- NOTE | ~2017-07-05 | PN ---
PATIENT:KAREN SINGH MEDICAL RECORD: [id number] LOCATION:CHARAN MesaJosé Luis ADMISSION DATE: 07/05/17 PROGRESS NOTE DATE OF SERVICE: 07/17/2017 SUBJECTIVE: The patient's case was discussed with staff. He has no new complaint. OBJECTIVE: The patient is in good behavioral control with limited insight about his condition. He does tolerate his medicines well. ASSESSMENT: No change in diagnoses. PLAN: Brief supportive and educational interventions were made. Retirement prognosis is guarded. TRANSINT:[id number] Voice Confirmation ID: [id number] DOCUMENT ID: [id number] SUZETTE MARSH MD at 1240 CC: [id number] DICTATION DATE: 07/17/17 1248 ASSAYER HELPER: 07/17/17 1308 ADM IN [place] [id number] [place] [id number]
--- NOTE | ~2017-07-05 | PN ---
PATIENT:KAREN SINGH MEDICAL RECORD: [id number] LOCATION:PONCEDuarte MesaJosé Luis ADMISSION DATE: 07/05/17 PROGRESS NOTE DATE OF SERVICE: 07/07/2017 SUBJECTIVE: The patient's case was discussed with staff. He has no new complaint. OBJECTIVE: The patient denies intent to harm himself or others. He generally tolerates his medicines well. He did require some p.r.n. medication last night because of agitation. ASSESSMENT: No change in diagnoses. PLAN: I have reviewed the patient's current medicines. I am going to give him Trilafon for his thought disorganization. He will be monitored for clinical changes associated with its use. TRANSINT:[id number] Voice Confirmation ID: [id number] DOCUMENT ID: [id number] SUZETTE MARSH MD at 1156 CC: [id number] DICTATION DATE: 07/07/17 1207 SALVAGE SUPERVISOR: 07/07/17 1237 ADM IN [id number] [place] [id number]
--- NOTE | ~2017-07-05 | PN ---
PATIENT:KAREN SINGH MEDICAL RECORD: [id number] LOCATION:CHARAN CrockerJoelJosé Luis ADMISSION DATE: 07/05/17 PROGRESS NOTE DATE OF SERVICE: 07/18/2017 SUBJECTIVE: The patient's case was discussed with staff. He has no new complaint. OBJECTIVE: The patient denies intent to harm himself or others. He generally tolerates his medicines well. Eye contact is fair. ASSESSMENT: No change in diagnoses. PLAN: Current medicines and therapies have been reviewed and will be maintained. Long-term prognosis is guarded. I am going to increase the Depakote to 500 mg twice daily. TRANSINT:[id number] Voice Confirmation ID: [id number] DOCUMENT ID: [id number] SUZETTE MARSH MD at 1418 CC: [id number] DICTATION DATE: 07/18/17 1252 PROCESS SAFETY MANAGEMENT ENGINEER: 07/18/17 1405 ADM IN [facility] [address] [place] [address]
--- NOTE | ~2017-07-05 | PN ---
PATIENT:KAREN SINGH MEDICAL RECORD: [id number] LOCATION:CHARAN Duval ADMISSION DATE: 07/05/17 PROGRESS NOTE DATE OF SERVICE: 07/16/2017 SUBJECTIVE: The patient's case was discussed with staff. He has no new complaint. OBJECTIVE: The patient is in good behavioral control with limited insight about his condition. He tolerates his medicines well. He has not been aggressive. ASSESSMENT: No change in diagnoses. PLAN: The patient is taking Depakote. I will check a level tomorrow or the next day, but I know it is going to be subtherapeutic given the amount he is taking. Given the fact that he has had a clinical response to even though it is subtherapeutic, I am not inclined to raise the dose just to treat the lab value as opposed to watching how the patient responds to it. I am sure it is not toxic at 750 mg a day. He is better. I anticipate that he could be transitioned out of the hospital soon if this level of improvement is maintained. TRANSINT:[id number] Voice Confirmation ID: [id number] DOCUMENT ID: [id number] SUZETTE MARSH MD at 0808 CC: [id number] DICTATION DATE: 07/16/17 1510 CASUALTY INSURANCE CLAIM ADJUSTER: 07/16/17 1537 ADM IN [place] [place] [address]
--- NOTE | ~2017-07-05 | PN ---
PATIENT:KAREN SINGH MEDICAL RECORD: [id number] LOCATION:CHARAN CrockerJeol112 ADMISSION DATE: 07/05/17 PROGRESS NOTE DATE OF SERVICE: 07/23/2017 SUBJECTIVE: No new complaint. OBJECTIVE: The patient is scheduled for discharge tomorrow. He has remained fairly stable. On exam, mood is more or less euthymic. Affect is rather shallow. Speech is rambling. Content of thought is negative for overt psychosis. Sensorium is unchanged. ASSESSMENT: No change in diagnoses. PLAN: 1. Maintain current medications. 2. Continue supportive therapy. TRANSINT:[id number] Voice Confirmation ID: [id number] DOCUMENT ID: [id number] RAMÓN RIVERA III, MD at 1020 CC: [id number] DICTATION DATE: 07/23/17 1145 CRUISE GUIDE: 07/23/17 1239 ADM IN [place] [place] [address]
--- NOTE | ~2017-07-05 | PN ---
PATIENT:KAREN SINGH MEDICAL RECORD: [id number] LOCATION:PONCEDuarte MesaJosé Luis ADMISSION DATE: 07/05/17 PROGRESS NOTE DATE OF SERVICE: 07/11/2017 SUBJECTIVE: The patient's case was discussed with staff. He has no new complaint. OBJECTIVE: The patient is in good behavioral control with limited insight about his condition. He generally tolerates his medicines well. He was very agitated last night. ASSESSMENT: No change in diagnoses. PLAN: The patient is going to be given Depakote for his mood lability. Reviewing the records indicates that this has been helpful in the past. His long-term prognosis is guarded. TRANSINT:[id number] Voice Confirmation ID: [id number] DOCUMENT ID: [id number] SUZETTE MARSH MD at 1303 CC: [id number] DICTATION DATE: 07/11/17 1350 RECORD CHANGER ASSEMBLER: 07/11/17 1405 ADM IN [address] [address] [place] [address]
--- NOTE | ~2017-07-05 | PN ---
PATIENT:KAREN SINGH MEDICAL RECORD: [id number] LOCATION:CHARAN Duval ADMISSION DATE: 07/05/17 PROGRESS NOTE DATE OF SERVICE: 07/13/2017 SUBJECTIVE: The patient's case was discussed with staff. He has no new complaint. OBJECTIVE: The patient denies intent to harm himself or others. He generally tolerates his medicines well. Eye contact is fair. The patient is much less aggressive today. He is still very confused cognitively. ASSESSMENT: No change in diagnoses. PLAN: Current medicines and therapies have been reviewed and will be maintained. Long-term prognosis is guarded. TRANSINT:[id number] Voice Confirmation ID: [id number] DOCUMENT ID: [id number] SUZETTE MARSH MD at 1101 CC: [id number] DICTATION DATE: 07/13/17 1215 PATROL SERGEANT SHERIFF'S OFFICE: 07/13/17 1239 ADM IN [facility] [address] [place] [address]
--- NOTE | ~2017-07-05 | PN ---
PATIENT:KAREN SINGH MEDICAL RECORD: [id number] LOCATION:LizzetteLAURENDuarte MesaJosé Luis ADMISSION DATE: 07/05/17 PROGRESS NOTE DATE OF SERVICE: 07/12/2017 SUBJECTIVE: The patient's case was discussed with staff. He has no new complaint. OBJECTIVE: The patient has been in better behavioral control today. He has not been aggressive. He denies that he would seek to harm himself or others. ASSESSMENT: No change in diagnoses. PLAN: Brief supportive and educational interventions were made. Penitentiary prognosis is guarded. TRANSINT:[id number] Voice Confirmation ID: [id number] DOCUMENT ID: [id number] SUZETTE MARSH MD at 1204 CC: [id number] DICTATION DATE: 07/12/17 1312 INDUSTRIAL ECONOMICS PROFESSOR: 07/12/17 1341 ADM IN [facility] [address] [place] [address]
--- NOTE | ~2017-07-05 | PN ---
PATIENT:KAREN SINGH MEDICAL RECORD: [id number] LOCATION:CHARAN MesaJosé Luis ADMISSION DATE: 07/05/17 PROGRESS NOTE DATE OF SERVICE: 07/15/2017 SUBJECTIVE: The patient's case was discussed with staff. He has no new complaint. OBJECTIVE: The patient is in good behavioral control with limited insight about his condition. He generally tolerates his medicines well. ASSESSMENT: No change in diagnoses. PLAN: Brief supportive and educational interventions were made. Long-term prognosis is guarded. TRANSINT:[id number] Voice Confirmation ID: [id number] DOCUMENT ID: [id number] SUZETTE MARSH MD at 1457 CC: [id number] DICTATION DATE: 07/15/17 1112 FINANCE CONSULTANT: 07/15/17 1122 ADM IN [id number] [place] [address]
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
[~2017-07-05 14:21] MED LIST: ARICEPT5 MG PO; CLEOCIN HCL300 MG PO; FLORAJEN3 CAPS460 MG PO; FUROSEMIDE20 MG PO; KLOR-CON 1010 MEQ PO; PROVENTIL/2.5 MG/3 M INH; VITAMIN B-121000 MCG PO; VITAMIN D5000 UNIT PO
[2017-07-05] MEDS ORDERED: DEPAKOTE SPRIN125 MG PO (17:08)
[2017-07-05 17:42] LABS: APPEARANCE CLEAR (CLEAR); BILIRUBIN NEGATIVE (NEGATIVE); COLOR YELLOW (YELLOW); GLUCOSE NEGATIVE (NEGATIVE); KETONE NEGATIVE (NEGATIVE); NITRITE NEGATIVE (NEGATIVE); PROTEIN NEGATIVE (NEGATIVE); SPECIFIC GRAVITY 1.015 (1.005-1.020); UROBILINOGEN NORMAL (NORMAL)
[2017-07-05 18:11] VITALS: BP 133/72; BMI 21.4
[2017-07-06 07:22] LABS: BASOPHILS 0.2 % (0-2); EOSINOPHILS 0.5 % (0-7); HEMATOCRIT 34.3 % (42.0-54.0); IMMATURE GRANULOCYTES 0.2 % (0-5); LYMPHOCYTES 30.1 % (15-50); MCH 30.8 pg (26.0-34.0); MCHC 32.1 g/dL (31.0-37.0); MCV 96.1 fL (80.0-100.0); MEAN PLATELET VOLUME 10.2 fL (7.4-10.4); MONOCYTES 12.4 % (2-11); NEUTROPHILS 56.6 % (40-80); PLATELET COUNT 227 10x3/uL (130-400); RBC 3.57 10x6/uL (4.20-6.10); RDW 16.9 % (11.5-14.5); WBC 5.5 10x3/uL (4.8-10.8)
[2017-07-06 07:49] LABS: HEMOGLOBIN A1C 5.3 % (4.8-6.0)
[2017-07-06 07:59] LABS: ALBUMIN 2.7 g/dL (3.4-5.0); ALKALINE PHOSPHATASE 94 U/L (46-116); ALT (SGPT) 25 U/L (10-68); CALC OSMOLALITY 279 mosm/kg (275-300); CALCIUM 8.9 mg/dL (8.5-10.1); CARBON DIOXIDE 25.8 mmol/L (21.0-32.0); CHLORIDE - SERUM 106 mmol/L (98-107); CHOL - HDL RATIO 3.9 ratio (2.3-4.9); CHOLESTEROL, TOTAL 162 mg/dL (0-200); CREATININE - SERUM 0.8 mg/dL (0.6-1.3); GLUCOSE 99 mg/dL (74-106); HDL CHOLESTEROL 42 mg/dL (32-96); LDL CHOLESTEROL 110 mg/dL (0-100); LDL-HDL RATIO 2.6 ratio (1.5-3.5); POTASSIUM - SERUM 4.1 mmol/L (3.5-5.1); PROTEIN - SERUM 6.5 g/dL (6.4-8.2); SODIUM 140 mmol/L (136-145); THYROID STIMULATING HORMONE 6.41 uIU/mL (0.36-3.74); TRIGLYCERIDE 51 mg/dL (30-200); UREA NITROGEN 15 mg/dL (7-18); VALPROIC ACID (DEPAKOTE) 5.2 ug/mL (50.0-100.0); eGFR NON AFRICAN AMERICAN > 90 mL/min (90-120)
[2017-07-06 10:20] VITALS: BP 138/74
[2017-07-06 20:03] VITALS: BP 142/68
[2017-07-07 07:00] VITALS: BP 119/70
[2017-07-08 08:22] VITALS: BP 102/050
[2017-07-08 19:21] VITALS: BP 135/76
[2017-07-09 07:00] VITALS: BP 128/59
[2017-07-09 07:07] LABS: VITAMIN D 25 HYDROXY 35.4 ng/mL (30.0-100.0)
[2017-07-09 08:20] VITALS: BMI 21.5
[2017-07-09 11:10] LABS: FOLATE (FOLIC ACID) - SERUM 5.6 ng/mL (>3.0)
[2017-07-09 12:50] VITALS: Ht 175.3 cm; Wt 66.0 kg
[2017-07-09 19:46] VITALS: BP 140/74
[2017-07-10 08:55] VITALS: BP 109/062
[2017-07-10 19:41] VITALS: BP 139/76
[2017-07-11 07:37] VITALS: BP 126/56
[2017-07-12 08:44] VITALS: BP 133/88
[2017-07-12 19:30] VITALS: BP 129/86
[2017-07-13 10:50] VITALS: BP 148/78
[2017-07-13 20:33] VITALS: BP 120/56
[2017-07-14 07:00] VITALS: BP 109/60
[2017-07-14 20:30] VITALS: BP 130/64
[2017-07-15 08:34] VITALS: BP 114/58
[2017-07-15 19:56] VITALS: BP 161/73
[2017-07-16 08:49] VITALS: BP 150/069
[2017-07-17 08:00] VITALS: BP 123/056
[2017-07-17 19:36] VITALS: BP 139/101
[2017-07-18 09:37] VITALS: BP 117/69
[2017-07-18 20:35] VITALS: BP 141/68
[2017-07-19 09:32] VITALS: BP 128/58
[2017-07-19 20:26] VITALS: BP 160/74
[2017-07-20 08:13] VITALS: BP 099/051
[2017-07-21 07:00] VITALS: BP 133/70
[2017-07-21 19:38] VITALS: BP 116/67
[2017-07-22 08:44] VITALS: BP 135/072
[2017-07-22 19:17] VITALS: BP 150/96
[2017-07-23 07:00] VITALS: BP 146/40
[2017-07-23] MEDS ORDERED: XANAX0.25 MG PO (11:28)
[2017-07-23] MEDS ORDERED: DEPAKENE250 MG PO (11:29)
[2017-07-23] MEDS ORDERED: PERPHENAZINE2 MG PO (11:29)
[2017-07-23] MEDS ORDERED: NAMENDA5 MG PO (11:29)
[2017-07-23] MEDS ORDERED: VITAMIN D5000 UNIT PO (11:30)
[2017-07-23 19:54] VITALS: BP 166/80
[2017-07-24 10:32] VITALS: BP 138/78
== END 2017-07-24 12:15 | DRG 56 ==
LOC: D.PSYCH 14:21
PROVIDERS: Psychiatry & Neurology Psychiatry
DX: G30.1 Alzheimer's disease with late onset (principal); J18.9 Pneumonia, unspecified organism; F02.81 Dementia in other diseases classified elsewhere, unspecified severity, with behavioral disturbance; J44.0 Chronic obstructive pulmonary disease with (acute) lower respiratory infection; Z74.09 Other reduced mobility; F22 Delusional disorders; D64.9 Anemia, unspecified; R13.12 Dysphagia, oropharyngeal phase; E53.8 Deficiency of other specified B group vitamins; E55.9 Vitamin D deficiency, unspecified; R63.0 Anorexia; Z68.21 Body mass index [BMI] 21.0-21.9, adult; L85.3 Xerosis cutis; Z87.891 Personal history of nicotine dependence; I10 Essential (primary) hypertension; R60.9 Edema, unspecified